=== PATIENT | female | born 1955 | race African-American/Black ===

== ENCOUNTER 2017-09-19 20:48 | Observation (INO) | payer BC ==
[2017-09-19 21:43] LABS: ADD MAN DIFF? NO
[2017-09-19 21:59] LABS: WHITE BLOOD COUNT 9.7 10^3/ul (4.8-10.8)
[2017-09-19 21:59] LABS: BASOPHILS % 0.2 % (0.0-2.0); EOSINOPHILS # 0.1 10^3/ul (0.0-0.5); EOSINOPHILS % 0.5 % (0.0-7.0); HEMATOCRIT 33.9 % (37.0-47.0); HEMOGLOBIN 10.8 g/dl (12.0-16.0); IMMATURE GRANS #M 0.03 10^3/ul; IMMATURE GRANS % (M) 0.3 %; LYMPHOCYTES # 1.7 10^3/ul (0.8-2.9); MEAN CORPUSCULAR HEMOGLOBIN 25.6 pg (29.0-33.0); MEAN CORPUSCULAR HGB CONC 31.9 g/dl (32.0-37.0); MEAN CORPUSCULAR VOLUME 80.3 fl (82.0-101.0); MEAN PLATELET VOLUME 9.3 fl (7.4-10.4); MONOCYTE # 0.6 10^3/ul (0.3-0.9); MONOCYTES % 6.6 % (0.0-11.0); NEUTROPHIL # 7.3 10^3/ul (1.6-7.5); NEUTROPHILS % 75.4 % (39.0-77.0); PLATELET COUNT 338 10^3/UL (140-415); RED BLOOD COUNT 4.22 10^6/ul (4.20-5.40); RED CELL DISTRIBUTION WIDTH 17.9 % (11.5-14.5)
[2017-09-19 22:18] LABS: ANION GAP 12 (8-16); BLOOD UREA NITROGEN 15 mg/dl (7-20); CALCIUM 9.7 mg/dl (8.4-10.2); CARBON DIOXIDE 29 mmol/L (21-31); CHLORIDE 102 mmol/L (97-110); CREATININE 0.73 mg/dl (0.44-1.00); GLUCOSE 105 mg/dl (70-220); POTASSIUM 3.7 mmol/L (3.5-5.1); SODIUM 139 mmol/L (135-144)
[2017-09-19 22:19] LABS: INR 0.92; PROTIME 12.4 Sec (11.9-14.9)
[2017-09-19 22:31] LABS: TROPONIN-I < 0.010 ng/ml (0.000-0.120)
[2017-09-19 22:56] LABS: ADD UMIC NO; UR ASCORBIC ACID NEGATIVE (NEGATIVE); UR BILIRUBIN (Dip) NEGATIVE (NEGATIVE); UR BLOOD (Dip) NEGATIVE (NEGATIVE); UR CLARITY CLEAR (CLEAR); UR COLOR STRAW (YELLOW); UR GLUCOSE (Dip) NEGATIVE (NEGATIVE); UR KETONES (Dip) NEGATIVE (NEGATIVE); UR LEUKOCYTE ESTERASE (Dip) NEGATIVE Leu/ul (NEGATIVE); UR NITRITE (Dip) NEGATIVE (NEGATIVE); UR SPECIFIC GRAVITY (Dip) 1.009 (1.003-1.030); UR TOTAL PROTEIN (Dip) NEGATIVE (NEGATIVE); UR UROBILINOGEN (Dip) NEGATIVE (NEGATIVE)
[2017-09-19] MEDS: ONDANSETRON 4 MG INJ IV (23:01)
[2017-09-19] MEDS: SOD CHLORIDE 0.9% 1,000 ML IV (23:04)
[2017-09-19] MEDS: morphine 2 MG INJ IV (23:04)
[2017-09-20] MEDS ORDERED: BISACODYL (EC) 5 MG TAB PO (01:00)
[2017-09-20] MEDS ORDERED: ONDANSETRON 4 MG INJ IV (01:00)
[2017-09-20] MEDS ORDERED: DOCUSATE SODIUM 100 MG CAP PO (01:00)
[2017-09-20] MEDS ORDERED: NACL 0.9% 3 ML SYG IV (01:00)
[2017-09-20] MEDS: ACETAMINOPHEN 325 MG TAB PO (01:35)
[2017-09-20 09:19] LABS: ADD MAN DIFF? NO
[2017-09-20 09:23] LABS: BASOPHILS % 0.3 % (0.0-2.0); EOSINOPHILS # 0.1 10^3/ul (0.0-0.5); EOSINOPHILS % 1.7 % (0.0-7.0); HEMATOCRIT 33.1 % (37.0-47.0); HEMOGLOBIN 10.2 g/dl (12.0-16.0); IMMATURE GRANS #M 0.02 10^3/ul; IMMATURE GRANS % (M) 0.3 %; LYMPHOCYTES # 1.6 10^3/ul (0.8-2.9); LYMPHOCYTES % 23.2 % (15.0-51.0); MEAN CORPUSCULAR HEMOGLOBIN 25.1 pg (29.0-33.0); MEAN CORPUSCULAR HGB CONC 30.8 g/dl (32.0-37.0); MEAN CORPUSCULAR VOLUME 81.3 fl (82.0-101.0); MEAN PLATELET VOLUME 9.6 fl (7.4-10.4); MONOCYTE # 0.5 10^3/ul (0.3-0.9); MONOCYTES % 6.4 % (0.0-11.0); NEUTROPHIL # 4.8 10^3/ul (1.6-7.5); NEUTROPHILS % 68.1 % (39.0-77.0); PLATELET COUNT 306 10^3/UL (140-415); RED BLOOD COUNT 4.07 10^6/ul (4.20-5.40); RED CELL DISTRIBUTION WIDTH 18.3 % (11.5-14.5)
[2017-09-20 09:50] LABS: CREATINE KINASE 246 IU/L (23-200)
[2017-09-20 09:51] LABS: ALANINE AMINOTRANSFERASE 23 IU/L (13-69); ALBUMIN/GLOBULIN RATIO 1.37; ALKALINE PHOSPHATASE 110 IU/L (42-121); ANION GAP 13 (8-16); ASPARTATE AMINO TRANSFERASE 25 IU/L (15-46); BILIRUBIN,INDIRECT 0.3 mg/dl (0-1.1); BILIRUBIN,TOTAL 0.3 mg/dl (0.2-1.3); BLOOD UREA NITROGEN 14 mg/dl (7-20); CALCIUM 9.7 mg/dl (8.4-10.2); CARBON DIOXIDE 28 mmol/L (21-31); CHLORIDE 106 mmol/L (97-110); CREATININE 0.73 mg/dl (0.44-1.00); GLUCOSE 91 mg/dl (70-220); MAGNESIUM 2.1 mg/dl (1.7-2.5); POTASSIUM 4.1 mmol/L (3.5-5.1); SODIUM 143 mmol/L (135-144); TOTAL PROTEIN 6.9 g/dl (6.1-8.1)
[2017-09-20 09:51] LABS: HEMOGLOBIN A1C 5.8 % (0-5.9)
[2017-09-20 09:52] LABS: IRON 45 ug/dl (35-150)
[2017-09-20 09:55] LABS: D-DIMER 707.94 ng/ml (<460)
[2017-09-20] MEDS: LISINOPRIL 5 MG TAB PO (09:56)
[2017-09-20] MEDS: CYCLOBENZAPRINE 10 MG TAB PO (09:56)
[2017-09-20 10:01] LABS: % IRON SATURATION 10 % SAT (22-52); TOTAL IRON BINDING CAPACITY 445 ug/dl (241-421)
[2017-09-20] MEDS: ENOXAPARIN 30 MG/0.3 ML SYG SC (10:01)
[2017-09-20 10:23] LABS: THYROID STIMULATING HORMONE 0.484 MIU/L (0.465-4.680)
[2017-09-20] MEDS: KETOROLAC 30 MG INJ IV (12:33)
[2017-09-20 12:34] LABS: TROPONIN-I < 0.010 ng/ml (0.000-0.120)
[2017-09-20 13:30] LABS: FERRITIN 9.1 ng/ml (11.1-264.0)
[2017-09-20] MEDS: SOD CHLORIDE 0.9% 100 ML (13:30)
[2017-09-20] MEDS: IOHEXOL 100 ML (13:30)
[2017-09-20] MEDS: traMADol 50 MG TAB PO (15:48)
[2017-09-20] MEDS: HYDROCODONE/APAP (5/325) TAB PO ×2 (18:40→22:32)
[2017-09-20] MEDS: FERROUS SULFATE (EC) 325 MG TAB PO (20:51)
[2017-09-21] MEDS: HYDROCODONE/APAP (5/325) TAB PO ×3 (02:36→08:54)
[2017-09-21 05:37] LABS: ANION GAP 10 (8-16); BLOOD UREA NITROGEN 19 mg/dl (7-20); CALCIUM 9.1 mg/dl (8.4-10.2); CARBON DIOXIDE 28 mmol/L (21-31); CHLORIDE 108 mmol/L (97-110); CREATINE KINASE 159 IU/L (23-200); CREATININE 0.73 mg/dl (0.44-1.00); GLUCOSE 89 mg/dl (70-220); PHOSPHORUS 3.9 mg/dl (2.5-4.9); POTASSIUM 4.3 mmol/L (3.5-5.1); SODIUM 142 mmol/L (135-144)
[2017-09-21] MEDS: FERROUS SULFATE (EC) 325 MG TAB PO (08:11)
[2017-09-21] MEDS: LISINOPRIL 5 MG TAB PO (08:12)
[2017-09-21] MEDS: ENOXAPARIN 30 MG/0.3 ML SYG SC (08:13)
== END 2017-09-21 12:32 | disposition home or self-care (01) ==
LOC: E/R 20:48 → TEL 23:56 → PP2 09-20 17:25
PROVIDERS: Family Medicine
DX: R25.2 Cramp and spasm (principal); R55 Syncope and collapse; D64.9 Anemia, unspecified; M62.82 Rhabdomyolysis; E04.1 Nontoxic single thyroid nodule
CPT/HCPCS: 36415; 70450; 71045; 71275; 76536; 80048; 80053; 81003; 82550; 82728; 82962; 83036; 83540; 83735; 84100; 84443; 84484; 85025; 85378; 85610; 93005; 93306; 93880; 93970; 96374; 96375; 97161; 99285-25; G0378